=== PATIENT | female | born 1960 | race Caucasian/White ===

== ENCOUNTER 2016-04-26 05:22 | Day surgery (SDC) | payer MEDICARE, BC ==
[2016-04-23 10:16] VITALS: BMI 45.2
[2016-04-23 16:58] VITALS: BMI 31.1
[2016-04-26] VITALS (14 sets, daily range): BP systolic 97–151; BP diastolic 63–81; PULSE 76–86; RESP 12–35; Ht 170.2 cm; Wt 92.2 kg
[~2016-04-26] VITALS: Ht 170.2 cm; Wt 92.2 kg
[~2016-04-26 05:22] MED LIST: AMLO-218 PO; ASPI81TA3 PO; ATOR20TA38 PO; BUPR300T48 PO; BUSP15TA3 PO; CHLO25TA13 PO; CLON-429 PO; ESTR1TAB15 PO; IMO2 PO; LEVO500T72 PO; METF500T3 PO; METO10TA92 PO; NAPR375T PO; NICO1PAT19 TD; OMEP20CA9 PO; ONDA8TAB9 PO; PRED1TAB2 PO; PRED2.5T3 PO; PRED5 PO; XOP15INH INH
[2016-04-26] MEDS ORDERED: BUPIVACAINE 0.5% (SDV) 30 ML INJ ONE (06:59)
[2016-04-26] MEDS ORDERED: BACITRACIN/POLYMYXIN 28.35 GM OINT TOP ONE (07:00)
[2016-04-26] MEDS ORDERED: DEXAMETHASONE 4 MG/ML 1 ML INJ ONE (07:00)
[2016-04-26] MEDS ORDERED: LIDOCAINE 2% (SDV) 5 ML INJ ONE (07:13)
[2016-04-26] MEDS ORDERED: PROPOFOL 20 ML ONE (07:13)
[2016-04-26] MEDS ORDERED: FENTAnyl 50 MCG/ML VIAL ONE (07:13)
[2016-04-26] MEDS ORDERED: MIDAZOLAM 1 MG/ML 2 ML INJ ONE (07:13)
--- NOTE | 2016-04-26 07:32 | HPN ---
Date/Time of Note Date/Time of Note DATE: 04/26/16 TIME: 07:32 Interval H&P Admission Note Pt. seen H&P reviewed: No system changes ADIS REYES DPM Apr 26, 2016 07:32
[2016-04-26] MEDS ORDERED: CEFAZOLIN 1 GM INJ ONE (07:46)
[2016-04-26] MEDS ORDERED: METOCLOPRAMIDE 10 MG INJ ONE (07:48)
[2016-04-26] MEDS ORDERED: ONDANSETRON 4 MG INJ ONE (07:48)
[2016-04-26] MEDS ORDERED: ACETAMINOPHEN 1000MG/100ML IV 100 ML ONE (08:01)
[2016-04-26] MEDS ORDERED: HYDROmorphONE 2 MG/ML SYG ONE (08:12)
[2016-04-26] MEDS ORDERED: LABETALOL HCL 20MG INJ IV PRN (08:30)
[2016-04-26] MEDS ORDERED: INSULIN ASPART [NOVOLOG] 3 ML PEN SC SCH (08:30)
[2016-04-26] MEDS ORDERED: MEPERIDINE 25 MG INJ IV PRN (08:30)
[2016-04-26] MEDS ORDERED: PROCHLORPERAZINE 10 MG INJ IV PRN (08:30)
[2016-04-26] MEDS ORDERED: DEXTROSE 50% 50 ML SYRINGE IV PRN ×2 (08:30)
[2016-04-26] MEDS ORDERED: HYDROmorphONE (0.2 MG/ML) 10ML SYG IV PRN ×2 (08:30)
[2016-04-26] MEDS ORDERED: GLUCOSE GEL 15 GRAM TUBE PO PRN ×2 (08:30)
[2016-04-26] MEDS ORDERED: hydrALAzine 20 MG INJ IV PRN (08:30)
[2016-04-26] MEDS ORDERED: GLUCOSE GEL 15 GRAM TUBE BUCCAL PRN (08:30)
[2016-04-26] MEDS ORDERED: GLUCAGON 1 MG INJ IM PRN (08:30)
[2016-04-26] MEDS ORDERED: ONDANSETRON 4 MG INJ IV PRN (08:30)
[2016-04-26] MEDS ORDERED: DIPHENHYDRAMINE 50 MG INJ IV PRN (08:30)
[2016-04-26] MEDS ORDERED: KETOROLAC 30 MG INJ ONE (08:35)
[2016-04-26] MEDS ORDERED: HYDROCODONE/APAP (10/325) TAB PO PRN ×2 (09:00)
[2016-04-26] MEDS: FENTAnyl 50 MCG/ML VIAL IV PRN ×3 (09:05→09:33)
--- NOTE | 2016-04-26 11:51 | OPR ---
DATE OF OPERATION: 04/26/2016 SURGEON: Cheo Diaz DPM SEPTIC TANK SETTER SURGEON: Larry Lawson DPM ANESTHESIOLOGIST: Mary Jane Avila MD ANESTHESIA: General. PREOPERATIVE DIAGNOSES: 1. Right ankle equinus. 2. Plantarflexed and elongated right 2nd metatarsal bone with callus formation. POSTOPERATIVE DIAGNOSES: 1. Right ankle equinus. 2. Plantarflexed and elongated right 2nd metatarsal bone with callus formation. PROCEDURES PERFORMED: 1. Gastroc recession, right leg. 2. Patrick osteotomy, right second metatarsal. DESCRIPTION OF PROCEDURE: The patient was brought into the operating room, placed on a table in a s ecure supine position. Cardiac monitoring and gentle sedation were utilized for this case. Preoper atively, a total of 20 mL of 0.5% Marcaine plain were injected, infiltrating the surgical sites in t he form of a local block. The foot and leg were then prepped and draped in the usual sterile manner . The thigh tourniquet was utilized and was inflated to 325 mmHg. Procedure #1 was then performed, performed, gastroc recession the right leg. A 3 cm medial incision was placed along the medial bel ly of the gastroc muscle. The incision was deepened, superficial bleeders were cauterized and bovie d as necessary using the hemostat. The peritenon was identified and from the aponeurosis below. A vertical incision was placed along the peritenon. The aponeurosis of the gastroc tendon w as identified and was released from medial to lateral. The peritenon was then sutured with 4-0 Vicr yl simple interrupted sutures. The subcutaneous tissue was closed with 4-0 Vicryl simple interrupte d sutures, and skin edges were reapproximated with simple interrupted 4-0 nylon stitches. Procedure #2 was then performed, Patrick osteotomy, right second metatarsal. A 3 cm incision was made over the right second metatarsal. The incision was then distally at the metatarsophalangeal joint extending proximally 3 cm. Incision was deepened. Again, superficial bleeders were cauterized and bovied as necessary. A linear incision was placed over the metatarsophalangeal joint. The capsule was reflec ghazal medially and laterally. The head of the second metatarsal was identified. Using the #105 saw terra chawla an oblique osteotomy was performed from superior dorsal to proximal plantar at a 45-degree angl e. The osteotomy was [id number], and the plantar capital fragment was shifted approximatel y 2 mm and fixated with a 12 mm x 2.0 mm Nancy cannulated screw. Good opposition of the bone edge s were noted upon the osteotomy. No intraoperative complications were encountered. At this point, the surgical site was irrigated with sterile saline mixed with bacitracin solution. The capsule was reapproximated with 4-0 Vicryl simple interrupted sutures, subcutaneous tissue was closed with 4-0 Vicryl simple interrupted sutures. The skin edges were reapproximated with a 4-0 nylon interlocking running stitch. The dressing consisted of Xeroform gauze, 4x4 gauze, 4-inch Kerlix roll, 2-inch Co ban into a semi-compressive dressing. A posterior fiberglass nonweightbearing splint was applied to the right foot and leg upon deflating the thigh tourniquet. The patient tolerated the above proced ure well without complications. The patient will follow up 1 week postop. Dictated By: CHEO HO/AVNI Conf#: [id number] DID#: [id number]
== END 2016-04-26 11:08 | disposition home or self-care (01) ==
LOC: SDS 05:22
PROVIDERS: ATTEND Podiatrist Primary Podiatric Medicine
DX: M20.41 Other hammer toe(s) (acquired), right foot (principal); E11.9 Type 2 diabetes mellitus without complications; I10 Essential (primary) hypertension; J44.9 Chronic obstructive pulmonary disease, unspecified; J45.909 Unspecified asthma, uncomplicated
CPT/HCPCS: 27687; 28285; 82962; J0131; J0690; J1170; J1200; J1815; J1885; J2250; J2405; J2765; J3010; L4386; J1100

== ENCOUNTER 2016-11-19 14:08 | Emergency (ER) | payer MEDICARE, BC ==
[~2016-11-19] VITALS: Ht 177.8 cm; Wt 98.5 kg
[~2016-11-19 14:08] MED LIST changes: +LEVA15HF6 INH; -XOP15INH INH
[2016-11-19 14:19] VITALS: Ht 177.8 cm; Wt 98.5 kg
[2016-11-19] MEDS ORDERED: IBUPROFEN 800 MG TAB PO ONE (16:00)
--- NOTE | 2016-11-19 16:27 | RADRPT ---
PROCEDURE: US Lower extremity Venous. CLINICAL INDICATION: Right leg edema , pain TECHNIQUE: Multiple sonographic images of the right lower extremity deep venous system was obtaine d utilizing grayscale, color-flow, compressive sonography and doppler imaging with augmentation. Th e images were reviewed on a PACS workstation. COMPARISON: None. FINDINGS: There is normal compressibility and flow within the right common femoral, femoral, posterior tibial, peroneal and popliteal veins. RPTAT: AA IMPRESSION: No sonographic evidence for deep venous thrombosis. .Mario Gonzales MD, MD Date Time Electronically viewed and signed by .Mario Gonzales MD, on 11/19/2016 16:27 .S/
--- NOTE | 2016-11-19 17:00 | RADRPT ---
PROCEDURE: XR, right knee. CLINICAL INDICATION: Pain. TECHNIQUE: 3 views of the knee were obtained. The images reviewed on a PACS workstation. COMPARISON: None available. FINDINGS: There is mild to moderate degenerative osteoarthritis of the femorotibial and patellofemoral joints with narrowing of the joint spaces, subchondral bony sclerosis and marginal bony spurs. The bones a re osteopenic. There is no joint effusion. No fracture, dislocation or destructive lesion. IMPRESSION: 1. Mild to moderate degenerative osteoarthritis of the femorotibial and patellofemoral joints with narrowing of the joint spaces, subchondral bony sclerosis and marginal bony spurs, worst at the ochoa llofemoral joint. 2. Osteopenia. RPTAT: GG .Onofre Zimmer MD, Date Time Electronically viewed and signed by .Onofre Zimmer MD, on 11/19/2016 17:00 .Y/
--- NOTE | 2016-11-19 17:06 | RADRPT ---
PROCEDURE: XR Lumbar Spine. CLINICAL INDICATION: 56 years of age, female. Lumbar pain after a fall. TECHNIQUE: AP, lateral and cone-down lateral view of the lumbar spine were obtained. COMPARISON: No prior studies are available for comparison. FINDINGS: There are 5 lumbar-type vertebrae. T12 Lumbar spine is imaged from to the sacrum. Normal alignment. Negative for evidence of acute fracture or traumatic subluxation. There is multilevel advanced degenerative disc disease greatest at L2-3, L4-5 and L5-S1 where there is marked disc space narrowing, the vacuum phenomenon, endplate sclerosis and osteophytes. There is milder degenerative disc disease at L1-2 with the vacuum phenomenon. L3-4 disc height is preserved. The posterior elements are unremarkable. Sacroiliac joints appear normal. There are are multiple prominent gas-filled loops of bowel in the abdomen. Mild vascular calcificati on. IMPRESSION: Negative for evidence of acute fracture or traumatic subluxation of lumbar spine. Multilevel advanced degenerative disc disease as described. RPTAT: HCTS Physician Milton Date Time Electronically viewed and signed by Physician Milton on 11/19/2016 17:06 /
--- NOTE | 2016-11-19 17:30 | ERD ---
ER Documentation Chief Complaint Date/Time DATE: 11/19/16 TIME: 17:24 Chief Complaint Complains of right knee pain HPI This is a 56 year old female presenting to ER with right knee pain and lower back pain after fall yesterday. Patient states she slipped on something on the floor and fell with her right knee bent. Patient states she felt her knee dislocate and replaced it herself. Now, patient rates pain 10/10 to right medial knee and lower back pain. Patient did not hit her head. There was no loss of consciousness. No vomiting. Patient is having difficulty ambulating and has been using a cane. Patient states she took "Vicodin" at home. ROS All systems reviewed and are negative except as per history of present illness. Medications Home Meds Active Scripts Ibuprofen* (Motrin*) 800 Mg Tab, 800 MG PO Q6, #30 TAB Prov:BRITTANY HERNANDEZ NP 11/19/16 Prednisone* (Prednisone*) 2.5 Mg Tablet, 2.5 MG PO DAILY for 2 Days, TAB Prov:LETA KINNEY NP 12/19/13 Prednisone* (Prednisone*) 1 Mg Tablet, 1 MG PO DAILY for 2 Days, TAB Prov:LETA KINNEY NP 12/19/13 Prednisone* (Prednisone*) 5 Mg Tab, 10 MG PO DAILY for 2 Days, TAB Prov:LETA KINNEY NP 12/19/13 Prednisone* (Prednisone*) 5 Mg Tab, 5 MG PO DAILY for 2 Days, TAB Prov:LETA KINNEY NP 12/19/13 Nicotine* (Nicotine* Patch) 7 mg/day Patch, 1 PATCH TD DAILY for 28 Days, PATCH Prov:LETA KINNEY NP 12/19/13 Levalbuterol* (Xopenex* HFA) 15 Gm Inha, 2 PUFFS INH Q4H Y for WHEEZING AND SOB for 28 Days, EA Prov:LETA KINNEY NP 12/19/13 Clonazepam* (Klonopin*) 0.5 Mg Tab, 1 MG PO BID for 28 Days, TAB Prov:LETA KINNEY NP 12/19/13 Levofloxacin* (Levaquin*) 500 Mg Tablet, 500 MG PO DAILY for 7 Days, TAB Prov:LETA KINNEY NP 12/19/13 Reported Medications Estrogen,Conj-Medroxyprogest Acet (Prempro) 0.625-2.5 Mg Tablet, 1 TAB PO DAILY , TAB 12/15/13 Aspirin* (Aspirin* Chew) 81 Mg Tab.chew, 81 MG PO DAILY, TAB.CHEW 12/15/13 Loperamide Hcl* (Loperamide Hcl*) 2 Mg Cap, 2-4 MG PO QID Y for DIARRHEA, CAP 12/15/13 Bupropion Hcl* (Wellbutrin XL*) 300 Mg Tab.sr.24h, 300 MG PO QAM, TAB.SA 12/15/13 Atorvastatin Calcium* (Atorvastatin Calcium*) 20 Mg Tablet, 20 MG PO DAILY, TAB 12/15/13 Chlorthalidone* (Chlorthalidone*) 25 Mg Tablet, 25 MG PO QAM Y for EDEMA, TAB 12/15/13 Amlodipine Besylate* (Norvasc*) 10 Mg Tablet, 10 MG PO DAILY, TAB 12/15/13 Metoclopramide* (Reglan*) 10 Mg Tablet, 10 MG PO TID Y for NV OR MIGRAINE, TAB 12/15/13 Buspirone Hcl* (Buspirone Hcl*) 15 Mg Tablet, 15 MG PO BID, TAB 12/15/13 Omeprazole* (Prilosec*) 20 Mg Capsule.dr, 20 MG PO QAM AC MEAL, CAP 12/15/13 Ondansetron Hcl* (Zofran*) 8 Mg Tablet, 8 MG PO TID Y for NAUSEA AND OR VOMITING , TAB 12/15/13 Naproxen* (Naprosyn*) 375 Mg Tablet, 375 MG PO BID W/ FOOD Y for PAIN, TAB 12/15/13 Metformin Hcl* (Metformin Hcl* ER) 500 Mg Tab.sr.24h, 500 MG PO BID W/ FOOD, TAB 12/15/13 Allergies Allergies: Coded Allergies: No Known Allergy (Unverified , 04/23/16) PMhx/Soc History of Surgery: Yes (LEFT FOOT, RIGHT KNEE) Anesthesia Reaction: No Hx Neurological Disorder: No Hx Respiratory Disorders: Yes (ASTHMA, O2 AT NIGHT) Hx Cardiac Disorders: Yes (HTN, HYPERLIPIDEMIA,) Hx Psychiatric Problems: No Hx Miscellaneous Medical Probl: No Hx Alcohol Use: No Hx Substance Use: No Hx Tobacco Use: No Smoking Status: Never smoker Physical Exam Vitals Vital Signs Date Time Temp Pulse Resp B/P Pulse Ox O2 Delivery O2 Flow Rate FiO2 9/8/17 14:19 98.4 88 20 139/69 96 Physical Exam Const: No acute distress, alert Head: Atraumatic Eyes: Normal Conjunctiva ENT: Normal External Ears, Nose and Mouth. Neck: Full range of motion..~ No meningismus. Resp: Clear to auscultation bilaterally Cardio: Regular rate and rhythm, no murmurs Abd: Soft, non tender, non distended. Normal bowel sounds Skin: No petechiae or rashes Back: No midline or flank tenderness Ext: swelling to anterior and posterior knee. ecchymosis to medial right knee Neur: Awake and alert Psych: Normal Mood and Affect Results 24 hrs Current Medications Medications (Trade) Dose Ordered Sig/Jayy Route PRN Reason Start Time Stop Time Status Last Admin Dose Admin Ibuprofen (Motrin) 800 mg ONCE ONCE PO 11/19/16 16:00 11/19/16 16:01 DC 11/19/16 16:10 Procedures/MDM [place] [address] [facility] Main Line: [phone] DIAGNOSTIC IMAGING REPORT Patient: EDWIGE FLORES : 1960 Age: 56 Sex: F MR #: [id number] DOS: 11/19/16 [facility]8 Ordering MD: BRITTANY HERNANDEZ NP Location: [facility] Room/Bed: PROCEDURE: XR, right knee. CLINICAL INDICATION: Pain. TECHNIQUE: 3 views of the knee were obtained. The images reviewed on a PACS workstation. COMPARISON: None available. FINDINGS: There is mild to moderate degenerative osteoarthritis of the femorotibial and patellofemoral joints with narrowing of the joint spaces, subchondral bony sclerosis and marginal bony spurs. The bones are osteopenic. There is no joint effusion. No fracture, dislocation or destructive lesion. IMPRESSION: 1. Mild to moderate degenerative osteoarthritis of the femorotibial and patellofemoral joints with narrowing of the joint spaces, subchondral bony sclerosis and marginal bony spurs, worst at the patellofemoral joint. 2. Osteopenia. [place] [address] Rad[facility] Main Line: [phone] DIAGNOSTIC IMAGING REPORT Patient: EDWIGE FLORES : 1960 Age: 56 Sex: F MR #: [id number] DOS: 11/19/16 155 Ordering MD: BRITTANY HERNANDEZ NP Location: [facility] Room/Bed: PROCEDURE: XR Lumbar Spine. CLINICAL INDICATION: 56 years of age, female. Lumbar pain after a fall. TECHNIQUE: AP, lateral and cone-down lateral view of the lumbar spine were obtained. COMPARISON: No prior studies are available for comparison. FINDINGS: There are 5 lumbar-type vertebrae. T12 Lumbar spine is imaged from to the sacrum. Normal alignment. Negative for evidence of acute fracture or traumatic subluxation. There is multilevel advanced degenerative disc disease greatest at L2-3, L4-5 and L5-S1 where there is marked disc space narrowing, the vacuum phenomenon, endplate sclerosis and osteophytes. There is milder degenerative disc disease at L1-2 with the vacuum phenomenon. L3-4 disc height is preserved. The posterior elements are unremarkable. Sacroiliac joints appear normal. There are are multiple prominent gas-filled loops of bowel in the abdomen. Mild vascular calcification. IMPRESSION: Negative for evidence of acute fracture or traumatic subluxation of lumbar spine. Multilevel advanced degenerative disc disease as described. [place] [address] Radiology Main Line: [phone] DIAGNOSTIC IMAGING REPORT Patient: EDWIGE FLORES : 1960 Age: 56 Sex: F MR #: [id number] DOS: 11/19/16 [facility] Ordering MD: BRITTANY HERNANDEZ NP Location: [facility] Room/Bed: PROCEDURE: US Lower extremity Venous. CLINICAL INDICATION: Right leg edema , pain TECHNIQUE: Multiple sonographic images of the right lower extremity deep venous system was obtained utilizing grayscale, color-flow, compressive sonography and doppler imaging with augmentation. The images were reviewed on a PACS workstation. COMPARISON: None. FINDINGS: There is normal compressibility and flow within the right common femoral, femoral, posterior tibial, peroneal and popliteal veins. RPTAT: AA IMPRESSION: No sonographic evidence for deep venous thrombosis. MDM: 56 year old female presents to ER with right knee pain and lower back pain after fall yesterday. X-ray right knee reviewed by radiologist as mild to moderate degenerative osteoarthritis of the femorotibial and patellofemoral joints with narrowing of the joint spaces, subchondral bony sclerosis and marginal bony spurs, worst at the patellofemoral joint. Osteopenia. X-ray lumbar spine reviewed by radiologist as negative for evidence of acute fracture or traumatic subluxation of lumbar spine. Multilevel advanced degenerative disc disease as described. Ultrasound right leg reviewed by radiologist as no sonographic evidence for deep venous thrombosis. Patient given ibuprofen 800 mg p.o. while in the ED. Patient states she took Vicodin while in the waiting room. Patient states pain is tolerable at this time. An Hayden wrap was applied while in the ED and patient remains neurovascularly intact. Low suspicion for fracture or dislocation. Patient is appropriate for outpatient management will be given prescription for ibuprofen 800 mg #30. Instructed patient to follow-up with primary care provider or orthopedic physician for reassessment and additional management. Resources provided. Return to ED for any high fever, chest pain, difficulty breathing, shortness breath, wheezing, vomiting, diarrhea, abdominal pain or any new or worsening symptoms. Patient verbalizes understanding. All questions answered at discharge. Disclaimer: Inadvertent spelling and grammatical errors are likely due to EHR/ dictation software use and do not reflect on the overall quality of patient care. Also, please note that the electronic time recorded on this note does not necessarily reflect the actual time of the patient encounter. Departure Diagnosis: Primary Impression: Knee injury Condition: BRITTANY Araujo NP Nov 19, 2016 17:30
[2016-11-19] MEDS ORDERED: IBUP800T25 PO (17:31)
[2016-11-19 17:59] VITALS: BP 135/68; PULSE 66; RESP 18; TEMP 98.4
== END 2016-11-19 17:59 | disposition home or self-care (01) ==
LOC: FTE 14:08
DX: S89.91XA Unspecified injury of right lower leg, initial encounter (principal); J45.909 Unspecified asthma, uncomplicated; I10 Essential (primary) hypertension; W01.0XXA Fall on same level from slipping, tripping and stumbling without subsequent striking against object, initial encounter; Y92.9 Unspecified place or not applicable; Z79.82 Long term (current) use of aspirin; Z79.84 Long term (current) use of oral hypoglycemic drugs
CPT/HCPCS: 72100; 73562; 93971

== ENCOUNTER 2018-06-26 15:57 | Emergency (ER) | payer MEDICARE, OTHER ==
[~2018-06-26] VITALS: Wt 90.5 kg
[~2018-06-26 15:57] MED LIST changes: +ASPI-903 PO; -ASPI81TA3 PO; -CHLO25TA13 PO; +CHLO25TA2 PO; +IBUP800T48 PO; -IMO2 PO; +LEVO500T48 PO; -LEVO500T72 PO; +LOPE-123 PO; +NICO-544 TD; -NICO1PAT19 TD; -PRED5 PO; +PRED5TAB PO
[2018-06-26] MEDS ORDERED: morphine 4 MG/ML VIAL IV STA (19:50)
[2018-06-26] MEDS ORDERED: ONDANSETRON 4 MG INJ IV STA (19:50)
--- NOTE | 2018-06-26 22:36 | ERD ---
ER Documentation Chief Complaint Chief Complaint RIGHT SIDE FLANK PAIN RADIATING TO RIGHT UPPER QUADRANT. NO NV HPI Patient is a 58-year-old female with hypertension and diabetes who presents with flank pain and abdominal pain. The patient has right flank pain and right upper quadrant abdominal pain. She has a history of hernia in the past and history of pneumonia and she was concerned it might be 1 of those 2 things. She said that it started a few weeks ago but has been worsening. She said the pain is sharp in nature. She has had no fevers. She has no nausea or vomiting. She was given a course of Zithromax for pneumonia by her primary doctor but did not get better. Upon review of old medical records this is the patient's seventh visit to the ER since 2008. ROS All systems reviewed and are negative except as per history of present illness. Medications Home Meds Active Scripts Ibuprofen* (Motrin*) 800 Mg Tab, 800 MG PO Q6, #30 TAB Prov:BRITTANY HERNANDEZ NP 11/19/16 Prednisone* (Prednisone*) 2.5 Mg Tablet, 2.5 MG PO DAILY for 2 Days, TAB Prov:LETA KINNEY NP 12/19/13 Prednisone* (Prednisone*) 1 Mg Tablet, 1 MG PO DAILY for 2 Days, TAB Prov:LETA KINNEY NP 12/19/13 Prednisone* (Prednisone*) 5 Mg Tab, 10 MG PO DAILY for 2 Days, TAB Prov:LETA KINNEY NP 12/19/13 Prednisone* (Prednisone*) 5 Mg Tab, 5 MG PO DAILY for 2 Days, TAB Prov:LETA KINNEY NP 12/19/13 Nicotine* (Nicotine* Patch) 7 mg/day Patch, 1 PATCH TD DAILY for 28 Days, PATCH Prov:LETA KINNEY NP 12/19/13 Levalbuterol* (Xopenex* HFA) 15 Gm Inha, 2 PUFFS INH Q4H PRN for WHEEZING AND SOB for 28 Days, EA Prov:LETA KINNEY NP 12/19/13 Clonazepam* (Klonopin*) 0.5 Mg Tab, 1 MG PO BID for 28 Days, TAB Prov:LETA KINNEY NP 12/19/13 Levofloxacin* (Levaquin*) 500 Mg Tablet, 500 MG PO DAILY for 7 Days, TAB Prov:LETA KINNEY NP 12/19/13 Reported Medications Estrogen,Conj-Medroxyprogest Acet (Prempro) 0.625-2.5 Mg Tablet, 1 TAB PO DAILY, TAB 12/15/13 Aspirin* (Aspirin* Chew) 81 Mg Tab.chew, 81 MG PO DAILY, TAB.CHEW 12/15/13 Loperamide Hcl* (Loperamide Hcl*) 2 Mg Cap, 2-4 MG PO QID PRN for DIARRHEA, CAP 12/15/13 Bupropion Hcl* (Wellbutrin XL*) 300 Mg Tab.sr.24h, 300 MG PO QAM, TAB.SA 12/15/13 Atorvastatin Calcium* (Atorvastatin Calcium*) 20 Mg Tablet, 20 MG PO DAILY, TAB 12/15/13 Chlorthalidone* (Chlorthalidone*) 25 Mg Tablet, 25 MG PO QAM PRN for EDEMA, TAB 12/15/13 Amlodipine Besylate* (Norvasc*) 10 Mg Tablet, 10 MG PO DAILY, TAB 12/15/13 Metoclopramide* (Reglan*) 10 Mg Tablet, 10 MG PO TID PRN for NV OR MIGRAINE, TAB 12/15/13 Buspirone Hcl* (Buspirone Hcl*) 15 Mg Tablet, 15 MG PO BID, TAB 12/15/13 Omeprazole* (Prilosec*) 20 Mg Capsule.dr, 20 MG PO QAM AC MEAL, CAP 12/15/13 Ondansetron Hcl* (Zofran*) 8 Mg Tablet, 8 MG PO TID PRN for NAUSEA AND OR VOMITING, TAB 12/15/13 Naproxen* (Naprosyn*) 375 Mg Tablet, 375 MG PO BID W/ FOOD PRN for PAIN, TAB 12/15/13 Metformin Hcl* (Metformin Hcl* ER) 500 Mg Tab.sr.24h, 500 MG PO BID W/ FOOD, TAB 12/15/13 Allergies Allergies: Coded Allergies: No Known Allergy (Unverified , 06/26/18) PMhx/Soc History of Surgery: Yes (LEFT FOOT, RIGHT KNEE) Anesthesia Reaction: No Hx Neurological Disorder: No Hx Respiratory Disorders: Yes (ASTHMA, O2 AT NIGHT) Hx Cardiac Disorders: Yes (HTN, HYPERLIPIDEMIA,) Hx Psychiatric Problems: No Hx Miscellaneous Medical Probl: No Hx Alcohol Use: No Hx Substance Use: No Hx Tobacco Use: No FmHx Family History: No diabetes Physical Exam Vitals Vital Signs Date Temp Pulse Resp B/P (MAP) Pulse Ox O2 O2 Flow FiO2 Time Delivery Rate 06/26/18 97.2 86 18 179/88 98 Room Air 20:17 (118) 06/26/18 97.2 85 18 179/88 98 16:00 (118) Physical Exam Const: No acute distress Head: Atraumatic Eyes: Normal Conjunctiva ENT: Normal External Ears, Nose and Mouth. Neck: Full range of motion. No meningismus. Resp: Clear to auscultation bilaterally Cardio: Regular rate and rhythm, no murmurs Abd: Soft, right upper quadrant and epigastric tenderness to palpation without rebound or guarding Skin: No petechiae or rashes Back: No midline or flank tenderness Ext: No cyanosis, or edema Neur: Awake and alert Psych: Normal Mood and Affect Result Diagram: 06/26/18200406/26/182004 Results 24 hrs Laboratory Tests Test 06/26/18 20:05 06/26/18 21:28 White Blood Count 15.2 10^3/ul Red Blood Count 4.71 10^6/ul Hemoglobin 13.0 g/dl Hematocrit 40.7 % Mean Corpuscular Volume 86.4 fl Mean Corpuscular Hemoglobin 27.6 pg Mean Corpuscular Hemoglobin Concent 31.9 g/dl Red Cell Distribution Width 14.4 % Platelet Count 299 10^3/UL Mean Platelet Volume 8.6 fl Immature Granulocytes % 0.700 % Neutrophils % 59.9 % Lymphocytes % 23.4 % Monocytes % 9.3 % Eosinophils % 6.1 % Basophils % 0.6 % Nucleated Red Blood Cells % 0.0 /100WBC Immature Granulocytes # 0.100 10^3/ul Neutrophils # 9.1 10^3/ul Lymphocytes # 3.6 10^3/ul Monocytes # 1.4 10^3/ul Eosinophils # 0.9 10^3/ul Basophils # 0.1 10^3/ul Nucleated Red Blood Cells # 0.0 10^3/ul Sodium Level 136 mmol/L Potassium Level 4.0 mmol/L Chloride Level 102 mmol/L Carbon Dioxide Level 24 mmol/L Anion Gap 10 Blood Urea Nitrogen 17 mg/dl Creatinine 0.91 mg/dl Est Glomerular Filtrat Rate mL/min > 60 mL/min Glucose Level 128 mg/dl Calcium Level 11.8 mg/dl Total Bilirubin 0.3 mg/dl Direct Bilirubin 0.00 mg/dl Indirect Bilirubin 0.3 mg/dl Aspartate Amino Transf (AST/SGOT) 22 IU/L Alanine Aminotransferase (ALT/SGPT) 31 IU/L Alkaline Phosphatase 116 IU/L Total Protein 7.5 g/dl Albumin 4.4 g/dl Globulin 3.10 g/dl Albumin/Globulin Ratio 1.41 Lipase 143 U/L Urine Color LEONIDAS Urine Clarity SLIGHTLY CLOUDY Urine pH 5.0 Urine Specific [place] 1.027 Urine Ketones TRACE mg/dL Urine Nitrite NEGATIVE mg/dL Urine Bilirubin 1+ mg/dL Urine Urobilinogen 1+ mg/dL Urine Leukocyte Esterase NEGATIVE Manish/ul Urine Microscopic RBC 2 /HPF Urine Microscopic WBC 2 /HPF Urine Mucus FEW /HPF Urine Hemoglobin NEGATIVE mg/dL Urine Glucose NEGATIVE mg/dL Urine Total Protein 2+ mg/dl Current Medications Medications Dose Sig/Jayy Start Time Status Last (Trade) Ordered Route PRN Stop Time Admin Dose Reason Admin Morphine 4 mg ONCE STAT 06/26/18 DC 06/26/18 Sulfate IV 19:50 20:02 (morphine) 06/26/18 19:51 Ondansetron 4 mg ONCE STAT 06/26/18 DC 06/26/18 HCl (Zofran IV 19:50 20:02 Inj) 06/26/18 19:51 Procedures/MDM Ultrasound of the gallbladder read by radiology. CT scan of the abdomen pelvis read by radiology. Chest x-ray read by radiology. Smoking Cessation Therapy: Pt. was lectured for greater than 3 minutes on the health risks of continued smoking and the benefits of cessation. Patient is a 58-year-old female who presents with right upper quadrant abdominal pain. Laboratory studies were basically normal. Urinalysis shows no sign of infection. Ultrasound of the gallbladder shows no cholecystitis. CT scan shows no obvious signs of surgical process. Chest x-ray shows no pneumonia. The patient is otherwise well-appearing and I believe outpatient management is appropriate at this time. She will need to follow-up closely with her primary doctor within 24-48 hours. She can return for any worsening symptoms. I doubt pulmonary embolism or aortic dissection. She was given copies of laboratory studies and imaging tests prior to discharge. Departure Diagnosis: Primary Impression: Abdominal pain Abdominal location: right upper quadrant Qualified Codes: R10.11 - Right upper quadrant pain Condition: Fair Patient Instructions: Abdominal Pain Referrals: [facility] (PCP) Additional Instructions: Call your primary care doctor TOMORROW for an appointment during the next 1-2 days.See the doctor sooner or return here if your condition worsens before your appointment time. JOSE HANKS MD Jun 26, 2018 22:36
[2018-06-26] MEDS ORDERED: ONDA4TAB14 PO (22:39)
[2018-06-26] MEDS ORDERED: IBUP-1542 PO (22:39)
[2018-06-26 22:44] VITALS: BP 163/87; PULSE 84; RESP 16
== END 2018-06-26 22:50 | disposition home or self-care (01) ==
LOC: E/R 15:57
DX: R10.11 Right upper quadrant pain (principal); I10 Essential (primary) hypertension; E11.9 Type 2 diabetes mellitus without complications; J45.909 Unspecified asthma, uncomplicated; Z79.82 Long term (current) use of aspirin; Z79.84 Long term (current) use of oral hypoglycemic drugs
CPT/HCPCS: 36415; 71045; 74176; 76705; 80053; 81001; 83690; 85025; 96374; 96375; 99285; J2270; J2405